=== PATIENT | male | born 1995 | race Caucasian/White ===

== ENCOUNTER 2017-11-05 22:40 | Emergency (ER) | payer SELFPAY ==
[~2017-11-05] VITALS: Ht 154.9 cm; Wt 92.5 kg
[2017-11-05 22:55] VITALS: BP 158/86
--- NOTE | 2017-11-05 22:55 | NUR ---
BIBA TO ER BED 12
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
[2017-11-06] MEDS ORDERED: IBUPROFEN 800 MG TAB PO ONE (00:40)
[2017-11-06 01:06] VITALS: BP 132/79
== END 2017-11-06 01:06 | disposition home or self-care (01) ==
LOC: MED 22:40
DX: R03.0 Elevated blood-pressure reading, without diagnosis of hypertension (principal); S20.212A Contusion of left front wall of thorax, initial encounter; V43.62XA Car passenger injured in collision with other type car in traffic accident, initial encounter; Y93.19 Activity, other involving water and watercraft; Y92.488 Other paved roadways as the place of occurrence of the external cause; Y99.8 Other external cause status
CPT/HCPCS: 71100; 99284